=== PATIENT | male | born 1990 | race Two or more races ===

== ENCOUNTER → 2017-04-14 | Outpatient (CLI) | payer BC ==
[~2017-04-14] MED LIST: ACET-1600 PO; IBUP-1223 PO
== END | disposition home or self-care (01) ==
LOC: STAR 13:12
PROVIDERS: ATTEND Orthopaedic Surgery
DX: Z02.9 Encounter for administrative examinations, unspecified (principal)

== ENCOUNTER 2017-04-20 07:24 | Day surgery (SDC) | payer BC ==
[~2017-04-20] VITALS: Ht 180.3 cm; Wt 101.5 kg
[2017-04-20] MEDS ORDERED: LACTATED RINGERS 1,000 ML IV SCH (07:47)
[2017-04-20] MEDS ORDERED: FENTANYL PF 100 MCG/2ML ONE ×3 (07:59→10:22)
[2017-04-20] MEDS ORDERED: MIDAZOLAM 1 MG/ML, 2ML ONE (07:59)
[2017-04-20] MEDS ORDERED: CEFAZOLIN 1,000 MG ONE (08:29)
[2017-04-20] MEDS ORDERED: KETOROLAC 30 MG/1 ML ONE (08:29)
[2017-04-20] MEDS ORDERED: PROPOFOL 10 MG/ML, 20ML ONE (08:29)
[2017-04-20] MEDS ORDERED: ONDANSETRON 2MG/ML, 2ML ONE (08:29)
[2017-04-20] MEDS ORDERED: DEXAMETHASONE 4 MG/ML, 1ML ONE (08:29)
[2017-04-20] MEDS ORDERED: KETAMINE 10 MG/ML, 20ML ONE (08:53)
[2017-04-20] MEDS ORDERED: ACETAMINOPHEN 325 MG TABLET PO PRN (09:00)
[2017-04-20] MEDS ORDERED: MEPERIDINE/PF 25MG/0.5ML IVPush PRN (09:00)
[2017-04-20] MEDS ORDERED: HYDROmorphone 1 MG/ML, 1ML IV PRN (09:00)
[2017-04-20] MEDS ORDERED: DIAZEPAM 5 MG/ML, 2ML IVPush PRN (09:00)
[2017-04-20] MEDS ORDERED: ALBUTEROL SULFATE 2.5 MG/3 ML NPPB PRN (09:00)
[2017-04-20] MEDS ORDERED: PROMETHAZINE 25 MG/ML, 1ML IV PRN (09:00)
[2017-04-20] MEDS ORDERED: OXYcodone 5 MG/5 ML ORAL.SOL UDC PO PRN (09:00)
[2017-04-20] MEDS ORDERED: ROPIvacaine/PF 0.5%, 30 ML INFIL ONE (09:03)
[2017-04-20] MEDS ORDERED: EPINEPHRINE 1 MG/ML, 1ML INFIL ONE (09:05)
[2017-04-20] MEDS ORDERED: LIDOCAINE 1%, 20ML INFIL ONE (09:05)
[2017-04-20] MEDS ORDERED: LIDOCAINE 1%, 10ML INFIL ONE (09:06)
[2017-04-20] MEDS ORDERED: OXYcodone 5 MG/5 ML ORAL.SOL UDC ONE ×2 (10:18→10:22)
[2017-04-20] MEDS ORDERED: ACETAMINOPHEN 650 MG/20.3 ML UDC ONE (10:19)
[2017-04-20] MEDS ORDERED: ACETAMINOPHEN 325 MG TABLET ONE (10:19)
[2017-04-20] MEDS: FENTANYL PF 100 MCG/2ML IV PRN ×2 (10:25→10:45)
== END 2017-04-20 14:40 ==
LOC: OUT 07:24
PROVIDERS: ATTEND Orthopaedic Surgery
DX: S83.511A Sprain of anterior cruciate ligament of right knee, initial encounter (principal); S83.411A Sprain of medial collateral ligament of right knee, initial encounter; S83.281A Other tear of lateral meniscus, current injury, right knee, initial encounter; X58.XXXA Exposure to other specified factors, initial encounter; Y93.89 Activity, other specified; Y92.89 Other specified places as the place of occurrence of the external cause; Y99.8 Other external cause status
CPT/HCPCS: 29881; 29888; C1713; J0171; J0690; J1100; J1885; J2250; J2405; J2704; J2795; J3010; J3360; J3490; J7120

== ENCOUNTER 2017-09-19 20:28 | Emergency (ER) | payer BC ==
[~2017-09-19] VITALS: Ht 180.3 cm; Wt 103.6 kg
[2017-09-19 20:35] VITALS: BP 132/81
== END 2017-09-19 21:08 | disposition home or self-care (01) ==
LOC: ED 21:02
DX: K08.89 Other specified disorders of teeth and supporting structures (principal)
CPT/HCPCS: 99283